=== PATIENT | male | born 1980 | race Caucasian/White ===

== ENCOUNTER 2018-06-09 18:57 | Emergency (ER) | payer SELFPAY ==
[~2018-06-09] VITALS: Ht 154.9 cm; Wt 116.3 kg
[2018-06-09 19:45] VITALS: BP 162/92; PULSE 73; RESP 18; Ht 154.9 cm; Wt 116.3 kg
[2018-06-09] MEDS ORDERED: KETOROLAC 60 MG INJ IM STA (23:32)
[2018-06-09] MEDS ORDERED: IBUP-1542 PO (23:47)
[2018-06-09] MEDS ORDERED: PRED20TA PO (23:47)
[2018-06-09] MEDS ORDERED: HYDR-4011 PO (23:47)
--- NOTE | 2018-06-09 23:55 | ERD ---
ER Documentation Chief Complaint Chief Complaint LEFT HAND/WRIST PAIN AND SWELLING X 2 DAYS HPI This is a 38-year-old male presents ED with complaints of left hand and left wrist pain and swelling times 2-days. Patient denies any trauma or falls account for pain. 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 Patient states that he has had a similar pain in the past in his right wrist and hand and was told that he had gout. Patient admits to pain, swelling. Denies fever, chills, tingling, numbness, lack sensation, and all other symptoms ROS All systems reviewed and are negative except as per history of present illness. Medications Home Meds Active Scripts Hydrocodone/Acetaminophen (Columbus 5-325 Tablet) 1 Each Tablet, 1 TAB PO Q6H PRN for PAIN, #3 TAB Prov:BEATRIZ CHATTERJEE PA-C 06/09/18 Ibuprofen* (Motrin*) 600 Mg Tab, 600 MG PO Q6, #30 TAB Prov:BEATRIZ CHATTERJEE PA-C 06/09/18 Prednisone* (Prednisone*) 20 Mg Tab, 40 MG PO DAILY for 4 Days, TAB Prov:BEATRIZ CHATTERJEE PA-C 06/09/18 Allergies Allergies: Coded Allergies: No Known Allergy (Unverified , 06/09/18) PMhx/Soc Medical and Surgical Hx: pt denies Surgical Hx Hx Miscellaneous Medical Probl: Yes (Gout) Hx Alcohol Use: No Hx Substance Use: No Hx Tobacco Use: No Smoking Status: Never smoker FmHx Family History: No diabetes Physical Exam Vitals Vital Signs Date Temp Pulse Resp B/P (MAP) Pulse Ox O2 O2 Flow FiO2 Time Delivery Rate 06/09/18 73 18 162/92 96 19:45 (115) Physical Exam Const: No acute distress Head: Atraumatic Eyes: Normal Conjunctiva ENT: Normal External Ears, Nose and Mouth. Neck: Full range of motion. No meningismus. Resp: Clear to auscultation bilaterally Cardio: Regular rate and rhythm, no murmurs Ext: No cyanosis, or edema Upper Extremity - left Skin: Mild swelling along left dorsal wrist and left dorsal hand Compartments: Soft Motor: Full active range of motion shoulder/elbow/wrist/hand Sensation: Intact shoulder/pinky/middle finger/thumb web space Bones: Moderate tenderness palpation along the dorsal wrist and hand, nontender humerus/elbow/forearm Snuffbox: Nontender Joints: No effusion Pulses/Perfusion: 2+ radial, Capillary refill < 2 seconds Neur: Awake and alert Psych: Normal Mood and Affect Results 24 hrs Current Medications Medications Dose Sig/Shannan Start Time Status Last (Trade) Ordered Route PRN Stop Time Admin Dose Reason Admin Prednisone 60 mg ONCE ONCE 06/10/18 06/09/18 (Prednisone) PO 00:00 23:40 06/10/18 00:01 Ketorolac 60 mg ONCE STAT 06/09/18 DC 06/09/18 Tromethamine IM 23:32 23:40 (Toradol) 06/09/18 23:33 1 tab ONCE ONCE 06/10/18 06/09/18 Acetaminophen PO 00:00 23:40 / 06/10/18 00:01 Hydrocodone Bitart (Columbus (5/325)) Procedures/MDM ER COURSE: The patient was given prednisone, Toradol and [place] The medication was well tolerated and the patient reports improvement in symptoms. The patient was stable throughout ED course. I kept the patient and/or family informed of laboratory and diagnostic imaging results throughout the emergency room course. The patient was promptly evaluated and a treatment plan was devised based on H&P and other data. This plan was discussed with the patient who agreed and had no further questions or concerns prior to discharge. MEDICAL DECISION MAKING: This is a 38-year-old male with a history of gout who presents ED with complaints of left wrist pain times 2 days. Patient was given medication in the emergency department reports feeling better. As patient has had a similar pain in the past in the right wrist and was told it was gout this likely could be a gout flareup. History and physical examination other data not consistent with emergent processes including but not limited to fracture, dislocation, tendon rupture, ischemia, neurovascular injury, compartment syndrome, septic joint, avascular necrosis, osteomyelitis, necrotizing fasciitis, septic joint, septic arthritis, or other emergent conditions. Patient's vitals are stable and can be managed outpatient with close follow-up. Advised patient to follow-up with primary care in the next 48 hours. Return to ED with any worsening symptoms. DISPOSITION PLAN: We discussed follow up with the patient's primary care doctor within 24 to 48 hours. Patient counseled regarding my diagnostic impression and care plan. Prior to discharge all questions answered. Pt agrees with treatment plan and understands strict return precautions. Precautionary instructions provided including instructions to return to the ER if not improving or for any worsening or changing symptoms or concerns. SPECIALIST FOLLOW UP RECOMMENDED: None Patient has been advised to follow up with primary care in 1-2 days. Disclaimer: Inadvertent spelling and grammatical errors are likely due to EHR/dictation software use and do not reflect on the overall quality of patient care. Also, please note that the electronic time recorded on this note does not necessarily reflect the actual time of the patient encounter. Blood Pressure Assessment: Patient's blood pressure was elevated (>120/80) but appears stable without evidence of hypertension emergency or urgency. The patient was counseled about the risks of hypertension and urged to pursue outpatient monitoring and therapy within a week with their primary care physician. Departure Diagnosis: Primary Impression: Left wrist pain Condition: Stable Patient Instructions: Treating Gout Attacks, Gout Diet Referrals: [facility] Usted se polanco hecho un examen mdico de control que le indica que no est en samanta condicin que requiera tratamiento urgente en el Departamento de Emergencia. Un estudio ms profundo y el tratamiento de ferguson condicin pueden esperar sin ningn riesgo hasta que usted sea atendida/o en el consultorio de ferguson mdico o samanta clnica. Es responsabilidad suya arreglar samanta bridgette para el seguimiento del rhett. MANEJO DE CONDICIONES NO URGENTES EN EL FUTURO 1) Si usted tiene un mdico de atencin primaria: Usted debera llamar a ferguson mdico de atencin primaria antes de venir al departamento de emergencia. Despus de las horas de consultorio, ferguson doctor o ferguson asociado/a est disponible por telfono. El mdico o enfermero de bautista en el servicio telefnico puede asesorarle por patricio medio para atender el problema, o rhett contrario se puede programar samanta bridgette. 2) Si usted no tiene un mdico de atencin primaria: Llame al mdico o clnica de referencia que aparece abajo soren las horas de consultorio para hacer samanta bridgette para que le vean. CLINICAS: [facility] [phone] [facility] [phone] [facility] [phone] [place] [phone] [place] [address] [phone] [place] [phone] Additional Instructions: Paciente aconseja volver a Departamento de urgencias inmediatamente para sntomas nuevos o que empeoran . Paciente aconseja posteriores con el PCP en 1-2 walker . Paciente verbaliza la comprehensin y est de acuerdo con el tratamiento y el curso de accin. Si el paciente no tiene ninguna de atencin primaria pueden seguir con [facility] [id number] [place] [address] o [facility] + [address] [phone] BEATRIZ CHATTERJEE PA-C Jun 09, 2018 23:55
[2018-06-10] MEDS ORDERED: HYDROCODONE/APAP (5/325) TAB PO ONE
[2018-06-10] MEDS ORDERED: predniSONE 20 MG TAB PO ONE
== END 2018-06-10 01:53 | disposition home or self-care (01) ==
LOC: FTE 18:57
DX: M25.532 Pain in left wrist (principal)
CPT/HCPCS: 96372; 99284; J1885; J7512